=== PATIENT | male | born 1955 | race Two or more races ===

== ENCOUNTER 2023-04-06 17:56 | Emergency (ER) | payer BC ==
[~2023-04-06] VITALS: Ht 182.9 cm; Wt 99.3 kg
[2023-04-06 20:40] VITALS: BP 149/70; TEMP 98.2; O2SAT 98
== END 2023-04-06 20:41 | disposition home or self-care (01) ==
LOC: ER 18:07
DX: S01.01XA Laceration without foreign body of scalp, initial encounter (principal); F32.A Depression, unspecified; Z88.0 Allergy status to penicillin; W22.8XXA Striking against or struck by other objects, initial encounter; Y93.89 Activity, other specified; Y92.89 Other specified places as the place of occurrence of the external cause; Y99.8 Other external cause status